=== PATIENT | female | born 1945 | race Caucasian/White ===

== ENCOUNTER 2017-08-23 19:20 | Emergency (ER) | payer OTHER ==
[~2017-08-23] VITALS: Ht 154.9 cm; Wt 81.6 kg
[~2017-08-23 19:20] MED LIST: DOCUSATE SODIU100 M3 PO; ELIQUIS2.5 M1 PO; FERROUS SULFAT325 M3 PO; LEVOTHYROXINE50 MCG PO; LISINOPRIL10 M1 PO; NIFEDIPINE ER60 M2 PO; NORCO 5-325 TA1 EACH PO
[2017-08-23 20:54] LABS: ABSOLUTE BASOPHIL COUNT 0 /CUMM (0.0-0.2); ABSOLUTE EOSINOPHIL COUNT 0.1 /CUMM (0.0-0.7); ABSOLUTE GRANULOCYTE CT 5.4 /CUMM (1.4-6.5); ABSOLUTE MONOCYTE COUNT 0.5 /CUMM (0.10-0.60); BASOPHIL % 0.5 % (0.0-2.0); GRANULOCYTE % 67.8 % (42.2-75.2); HEMATOCRIT 41.1 % (37-47); MEAN CORPUSCULAR HGB 29.4 PG (27.0-31.0); MEAN CORPUSCULAR HGB CONC 33.4 G/DL (33.0-37.0); MEAN CORPUSCULAR VOLUME 88.2 FL (81.0-99.0); MEAN PLATELET VOLUME 8.4 FL (7.4-10.4); PLATELET COUNT 278 /CUMM (130-400); RBC DISTRIBUTION WIDTH 14.3 % (11.5-14.5); RED BLOOD CELL CT 4.66 /CUMM (4.20-5.40); WHITE BLOOD CELL COUNT 7.9 /CUMM (4.8-10.8)
--- NOTE | 2017-08-23 21:31 | ED GENERAL ADULT ---
History of Present Illness General Chief Complaint: General Adult Stated Complaint: HIGH BP SINCE EARLY AFTERNOON, 218/108 Source: patient, family, old records Exam Limitations: no limitations Vital Signs & Intake/Output Vital Signs & Intake/Output Vital Signs Date Time Temp Pulse Resp B/P B/P Pulse O2 O2 Flow FiO2 Mean Ox Delivery Rate 08/23 2222 68 18 184/90 99 Room Air 08/23 2157 84 18 214/90 08/23 2034 222/112 08/23 1922 96.9 91 18 186/108 98 Allergies Coded Allergies: No Known Allergies (11/26/16) Reconcile Medications Apixaban (Eliquis) 2.5 MG TABLET 2.5 MG PO BID anticoagulation Docusate Sodium 100 MG CAPSULE 100 MG PO BID PRN CONSTIPATION stool softener available over the counter Ferrous Sulfate 325 MG (65 MG IRON) TABLET 1 TAB PO DAILY PRE OP (Reported) Hydrocodone/Acetaminophen ([place] 5-325 Tablet) 5 MG-325 MG TABLET 1-2 TAB PO Q4-6 PRN PRN pain control tylenol alternatively. do not combine. Levothyroxine Sodium 50 MCG TABLET 1 TAB PO DAILY HYPOTHTYROID (Reported) Lisinopril 10 MG TABLET 1 TAB PO DAILY HTN (Reported) Nifedipine (Nifedipine ER) 60 MG TAB.ER.24 1 TAB PO NIGHTLY HTN (Reported) Triage Note: PT TO TRIAGE C/O HIGH BLOOD PRESSURE WHEN CHECKED AT HOME. PT HX, TAKES LISINOPRIL AND LABETALOL RX BY DR. DIEHL. PT DENIES BLURRED VISION/DIZZINESS/ SOB BUT STATES HEAVINESS IN CHEST. MANUAL BP 186/108. Triage Nurses Notes Reviewed? yes Onset: several weeks Duration: week(s):, continues in ED, getting worse Timing: recent history Severity: moderate, severe No Modifying Factors: none Associated Symptoms: chest pain LMP (ages 10-50): post menopausal Patient currently breastfeeds: No HPI: Several weeks prior to admission the patient has had escalating blood pressure readings. 2 days prior to admission she was put on lisinopril 10 mg twice a day and labetalol 100 mg twice a day. She presents with mild throbbing headache and chest pressure no change with exertion. She denies fever chills nausea vomiting diarrhea abdominal pain shortness breath dysuria rash bleeding. Past History Travel History Traveled to [place] past 21 day No Medical History Any Pertinent Medical History? see below for history Neurological: NONE EENT: NONE Cardiovascular: hypertension Respiratory: NONE Gastrointestinal: NONE Hepatic: NONE Renal: NONE Musculoskeletal: NONE Psychiatric: NONE Endocrine: hypothyroidism Blood Disorders: NONE Cancer(s): colon/rectal cancer FRAMER/Reproductive: NONE History of MRSA: No History of VRE: No History of CDIFF: No Surgical History Surgical History: none Psychosocial History Who do you live with Significant Other Services at Home None What is your primary language Portuguese Tobacco Use: Never used ETOH Use: denies use Family History Hx Contributory? No Review of Systems Review of Systems Constitutional: Reports: no symptoms. EENTM: Reports: no symptoms. Respiratory: Reports: no symptoms. Cardiovascular: Reports: see HPI, chest pain. GI: Reports: no symptoms. Genitourinary: Reports: no symptoms. Musculoskeletal: Reports: no symptoms. Skin: Reports: no symptoms. Neurological/Psychological: Reports: see HPI, headache. Hematologic/Endocrine: Reports: no symptoms. Immunologic/Allergic: Reports: no symptoms. All Other Systems: Reviewed and Negative Physical Exam Physical Exam General Appearance: well developed/nourished, alert, awake, anxious, mild distress, obese Head: atraumatic, normal appearance Eyes: Bilateral: normal appearance, PERRL, EOMI. Ears, Nose, Throat: normal pharynx, normal ENT inspection, hearing grossly normal Neck: normal inspection, supple, full range of motion, no midline tenderness Respiratory: normal breath sounds, chest non-tender, no respiratory distress, quiet respiration, lungs clear Cardiovascular: regular rate/rhythm, normal peripheral pulses, norml femoral pulses equa Peripheral Pulses: 4+ carotid (R), 4+ carotid (L) Gastrointestinal: normal bowel sounds, soft, non-tender, no organomegaly Back: normal inspection, normal range of motion, no vertebral tenderness Extremities: normal inspection, normal capillary refill, normal range of motion, no edema Neurologic/Psych: no motor/sensory deficits, awake, alert, oriented x 3, normal gait, normal mood/affect, educational coordinator II-XII nml as tested Reflexes: 2+: bicep (R), bicep (L). Skin: intact, normal color, warm/dry Lymphatic: no anterior cervical kim Core Measures ACS in differential dx? No CVA/TIA Diagnosis: No Sepsis Present: No Sepsis Focused Exam Completed? No Progress Differential Diagnoses I considered the following diagnoses in my evaluation of the patient: Hypertension chest pain syndrome Plan of Care: Orders Procedure Date/time Status Add-on Test (ER Only) 08/23 2052 Active TSH REFLEX 08/24 2043 Complete MAGNESIUM 08/24 2043 Complete TROPONIN LEVEL 08/23 2010 Complete COMPREHENSIVE METABOLIC PANEL 08/23 2010 Complete CBC WITHOUT DIFFERENTIAL 08/23 2010 Complete EKG 08/23 1924 Active Laboratory Tests 08/23/172043: Anion Gap 13, Estimated GFR > 60, BUN/Creatinine Ratio 27.5 H, Glucose 98, Calcium 10.3 H, Magnesium 2.0, Total Bilirubin 0.8, AST 18, ALT 25, Alkaline Phosphatase 86, Troponin I < 0.01, Total Protein 7.5, Albumin 4.8, Globulin 2.7, Albumin/Globulin Ratio 1.8, TSH &T3 &Free T4 Intrp 2.930, CBC w Diff NO MAN DIFF REQ, RBC 4.66, MCV 88.2, MCH 29.4, MCHC 33.4, RDW 14.3, MPV 8.4, Gran % 67.8, Lymphocytes % 25.0, Monocytes % 5.7, Eosinophils % 1.0, Basophils % 0.5, Absolute Granulocytes 5.4, Absolute Lymphocytes 2.0, Absolute Monocytes 0.5, Absolute Eosinophils 0.1, Absolute Basophils 0 Diagnostic Imaging: Discussed w/RAD: CT Scan. Radiology Impression: no acute abnormality Initial ED EKG: normal axis, normal intervals, normal p-waves, normal QRS complex, normal sinus rhythm, no ST T wave changes Prior EKG: unchanged Rhythm Strip: normal sinus rhythm Departure Departure Time of Disposition: 2319 Disposition: HOME OR SELF CARE Condition: Stable Clinical Impression Primary Impression: Hypertension Referrals: Tomi Diehl MD, MD,M. Ramu (PCP/Family) Additional Instructions: Increase your labetalol to 2 tabs 2 times a day Departure Forms: Customer Survey General Discharge Information Critical Care Note Critical Care Note Critical Care Time: 30-74 min (35)
--- NOTE | 2017-08-23 21:39 | CT SCAN REPORT ---
EXAMINATION: CT HEAD WITHOUT CONTRAST CLINICAL INFORMATION: Headache, hypertension COMPARISON: None TECHNIQUE: Contiguous axial imaging was performed from the skull base to vertex without intravenous administration of contrast. DLP: 620.91 mGy-cm FINDINGS: There is no evidence of acute intracranial hemorrhage or territorial infarction. No abnormal mass effect or midline shift is seen. Ma to white matter differentiation is well preserved. No extra-axial fluid collections are identified. The ventricles are normal in size. The osseous structures and soft tissues are normal. The mastoid air cells and visualized portions of the paranasal sinuses are well aerated. IMPRESSION: No acute intracranial pathology.
[2017-08-23] MEDS ORDERED: LABETALOL HCL100 M1 PO (23:45)
[2017-08-24 00:25] VITALS: BP 158/85
[2017-08-26] MEDS ORDERED: LABETALOL HCL300 M1 PO ×2 (01:24→13:56)
== END 2017-08-24 00:26 ==
LOC: ERH 19:20
PROVIDERS: Physician Assistant Medical
DX: I10 Essential (primary) hypertension (principal)
CPT/HCPCS: 93005; 93010; 96374; 99291

== ENCOUNTER 2017-12-21 20:12 | Emergency (ER) | payer OTHER ==
[~2017-12-21] VITALS: Ht 154.9 cm; Wt 84.4 kg
[~2017-12-21 20:12] MED LIST changes: +LABETALOL HCL100 M1 PO; +LABETALOL HCL300 M1 PO
[2017-12-21 20:51] LABS: ABSOLUTE BASOPHIL COUNT 0 /CUMM (0.0-0.2); ABSOLUTE EOSINOPHIL COUNT 0.1 /CUMM (0.0-0.7); ABSOLUTE GRANULOCYTE CT 3.3 /CUMM (1.4-6.5); ABSOLUTE LYMPH COUNT 1.8 /CUMM (1.2-3.4); ABSOLUTE MONOCYTE COUNT 0.4 /CUMM (0.10-0.60); BASOPHIL % 0.4 % (0.0-2.0); EOSINOPHIL % 1.2 % (0-5); GRANULOCYTE % 58.7 % (42.2-75.2); HEMATOCRIT 40.1 % (37-47); MEAN CORPUSCULAR HGB 29.9 PG (27.0-31.0); MEAN CORPUSCULAR HGB CONC 34.2 G/DL (33.0-37.0); MEAN CORPUSCULAR VOLUME 87.4 FL (81.0-99.0); PLATELET COUNT 277 /CUMM (130-400); RBC DISTRIBUTION WIDTH 14.8 % (11.5-14.5); RED BLOOD CELL CT 4.59 /CUMM (4.20-5.40); WHITE BLOOD CELL COUNT 5.5 /CUMM (4.8-10.8)
--- NOTE | 2017-12-21 23:36 | RADIOLOGY REPORT ---
EXAMINATION: XR CHEST CLINICAL INFORMATION: Chest pain. Shortness of breath. COMPARISON: 08/25/2017 TECHNIQUE: 2 views of the chest were obtained. FINDINGS: The lungs are well expanded. There is no focal consolidation, edema, or effusion. No pneumothorax. The cardiomediastinal silhouette is within normal limits of size with a calcified aorta. No acute osseous abnormality. IMPRESSION: No acute pulmonary finding.
--- NOTE | 2017-12-22 00:08 | ED GENERAL ADULT ---
History of Present Illness General Chief Complaint: General Adult Stated Complaint: HIGH BP 200/100 AT HOME, DIFF BREATHING Source: patient Exam Limitations: no limitations Vital Signs & Intake/Output Vital Signs & Intake/Output Vital Signs Date Time Temp Pulse Resp B/P B/P Pulse O2 O2 Flow FiO2 Mean Ox Delivery Rate 12/22 0131 97.8 84 18 164/73 100 Room Air 12/22 0113 97 Room Air 12/21 2339 97.7 86 18 168/72 100 Room Air 12/21 2225 93 161/82 12/21 2031 98.5 103 18 167/79 99 Room Air ED Intake and Output 12/22 0000 12/21 1200 Intake Total Output Total Balance Patient 186 lb Weight Weight Reported by Patient Measurement Method Allergies Coded Allergies: No Known Allergies (11/26/16) Reconcile Medications Apixaban (Eliquis) 2.5 MG TABLET 2.5 MG PO BID anticoagulation Docusate Sodium 100 MG CAPSULE 100 MG PO BID PRN CONSTIPATION stool softener available over the counter Ferrous Sulfate 325 MG (65 MG IRON) TABLET 1 TAB PO DAILY PRE OP (Reported) Hydrocodone/Acetaminophen ([place] 5-325 Tablet) 5 MG-325 MG TABLET 1-2 TAB PO Q4-6 PRN PRN pain control tylenol alternatively. do not combine. Labetalol HCl 300 MG TABLET 1 TAB PO BID HTN Labetalol HCl 300 MG TABLET 1 TAB PO BID HIGH BLOOD PRESSURE Labetalol HCl 100 MG TABLET 2 TAB PO BID HTN Levothyroxine Sodium 50 MCG TABLET 1 TAB PO DAILY HYPOTHTYROID (Reported) Lisinopril 10 MG TABLET 1 TAB PO DAILY HTN (Reported) Nifedipine (Nifedipine ER) 60 MG TAB.ER.24 1 TAB PO NIGHTLY HTN (Reported) Triage Note: PT TO ED C/O HIGH BP AT HOME 200/100 AND DIFF BREATHING THAT STARTED "WHEN I SAW MY BLOOD PRESSURE WAS THAT HIGH" BP 167/79 IN TRIAGE "I WAS GOING TO TAKE IN AGAIN AT HOME BUT I WAS ANXIOUS" STATES CENTER "CHEST HEAVINESS" IS NON RADIATING "I FEEL IT WHEN I BREATH DEEP" Triage Nurses Notes Reviewed? yes HPI: Ms. Parisi is a 72-year-old female with a past medical history of hypertension, came to the emergency department to home blood pressure reading of over 200/90. Patient states during this time she felt headache, nausea, though denies shortness of breath, chest pain, dizziness, lightheadedness. Arrival to the emergency department, her blood pressure readings were running around 160/ 70. EKG showed no acute ST segment abnormalities, troponins were negative 2. Repeat EKG was unchanged. Head CT was ordered, but she refused even after explaining the importance upset past. Patient however was adamant about not having head CT. (Bashir Cisneros MD,[facility]) Past History Travel History Traveled to [place] past 21 day No Medical History Any Pertinent Medical History? see below for history Neurological: NONE EENT: NONE Cardiovascular: hypertension Respiratory: NONE Gastrointestinal: NONE Hepatic: NONE Renal: NONE Musculoskeletal: NONE Psychiatric: NONE Endocrine: hypothyroidism Blood Disorders: NONE Cancer(s): colon/rectal cancer CONTROL SYSTEMS ENG/Reproductive: NONE History of MRSA: No History of VRE: No History of CDIFF: No Surgical History Surgical History: none Psychosocial History Who do you live with Significant Other Services at Home None What is your primary language Nigerien Tobacco Use: Quit >30 days ago ETOH Use: occasional use Illicit Drug Use: denies illicit drug use Family History Hx Contributory? Yes (Bashir Cisneros MD,[facility]) Review of Systems Review of Systems Constitutional: Reports: no symptoms. EENTM: Reports: no symptoms. Respiratory: Reports: no symptoms. Cardiovascular: Reports: see HPI. GI: Reports: no symptoms. Genitourinary: Reports: no symptoms. Musculoskeletal: Reports: no symptoms. Skin: Reports: no symptoms. Neurological/Psychological: Reports: headache. Hematologic/Endocrine: Reports: no symptoms. Immunologic/Allergic: Reports: no symptoms. All Other Systems: Reviewed and Negative (Bashir Cisneros MD,[facility]) Physical Exam Physical Exam General Appearance: well developed/nourished, no apparent distress, alert, awake , comfortable Head: atraumatic, normal appearance Eyes: Bilateral: normal appearance, PERRL, EOMI. Neck: normal inspection, supple, full range of motion Respiratory: normal breath sounds, chest non-tender, no respiratory distress, lungs clear Cardiovascular: regular rate/rhythm, trace pedal edema Gastrointestinal: normal bowel sounds, soft, non-tender, no organomegaly Extremities: normal inspection, normal capillary refill, pedal edema Neurologic/Psych: no motor/sensory deficits, awake, alert, oriented x 3, normal gait, production operations inspector II-XII nml as tested Skin: intact Core Measures ACS in differential dx? Yes CVA/TIA Diagnosis: No Sepsis Present: No Sepsis Focused Exam Completed? No (Bashir Cisneros MD,[facility]) Progress Differential Diagnoses I considered the following diagnoses in my evaluation of the patient: [ Hypertensive urgency] Plan of Care: Orders Procedure Date/time Status EKG 12/22 0055 Active TROPONIN LEVEL 12/21 2329 Complete EKG 12/21 2329 Active Add-on Test (ER Only) 12/21 2234 Active D-DIMER 12/21 2029 Complete URINALYSIS 12/21 2018 Complete TROPONIN LEVEL 12/21 2018 Complete COMPREHENSIVE METABOLIC PANEL 12/21 2018 Complete CBC WITHOUT DIFFERENTIAL 12/21 2018 Complete EKG 12/22 2015 Active Laboratory Tests 12/21/172332: Troponin I < 0.01 12/21/172105: Urine Color STRAW, Urine Clarity CLEAR, Urine pH 6.0, Ur Specific [place] 1.010, Urine Protein NEG, Urine Ketones NEG, Urine Nitrite NEG, Urine Bilirubin NEG, Urine Urobilinogen 0.2, Ur Leukocyte Esterase NEG, Ur Microscopic EXAM NOT REQUIRED, Urine Hemoglobin NEG, Urine Glucose NEG 12/21/172029: Anion Gap 10, Estimated GFR 40 L, BUN/Creatinine Ratio 24.6, Glucose 104 H, Calcium 10.1, Total Bilirubin 0.5, AST 20, ALT 28, Alkaline Phosphatase 62, Troponin I < 0.01, Total Protein 7.4, Albumin 4.8, Globulin 2.6, Albumin/ Globulin Ratio 1.8, D-Dimer High Sensitivty < 200, CBC w Diff NO MAN DIFF REQ, RBC 4.59, MCV 87.4, MCH 29.9, MCHC 34.2, RDW 14.8 H, MPV 8.0, Gran % 58.7, Lymphocytes % 32.4, Monocytes % 7.3, Eosinophils % 1.2, Basophils % 0.4, Absolute Granulocytes 3.3, Absolute Lymphocytes 1.8, Absolute Monocytes 0.4, Absolute Eosinophils 0.1, Absolute Basophils 0 Initial ED EKG: NSR (Bashir Cisneros MD,[facility]) Differential Diagnoses I considered the following diagnoses in my evaluation of the patient: (Kael Manrique DO) Departure Departure Disposition: HOME OR SELF CARE Condition: Stable Clinical Impression Primary Impression: Hypertension Qualifiers: Hypertension type: unspecified Qualified Code: I10 - Essential ( primary) hypertension Referrals: Luis Manuel Westfall MD (PCP/Family) Additional Instructions: Please follow with her primary care provider about this emergency department visit. Follow-up with her strategy lead within one week. Should symptoms reappear, worsen please return to the emergency department. Departure Forms: Customer Survey General Discharge Information (Bashir Cisneros MD,[facility]) Departure Comments 12/22/17 72-year-old female status post episode of elevated blood pressure and headache. Her symptoms completely resolved and her blood pressure came down. She denies chest pain or shortness of breath; labs are unremarkable, neurological status is normal. Her medications were reviewed. She'll follow-up the strategy lead this week or return to the emergency department if worse (Kael Manrique DO) Critical Care Note Critical Care Note Critical Care Time: 30-74 min (Bashir Cisneros MD,[facility])
[2017-12-22 01:31] VITALS: BP 164/73
== END 2017-12-22 01:31 ==
LOC: ERH 20:12
PROVIDERS: Physician Assistant Medical
DX: I10 Essential (primary) hypertension (principal); R07.89 Other chest pain
CPT/HCPCS: 71046; 81003; 93005; 93010